=== PATIENT | male | born 1965 | race Caucasian/White ===

== ENCOUNTER 2016-06-07 09:55 | Emergency (ER) | payer BC, MEDICAID ==
[2016-06-07] MEDS ORDERED: ALBUTEROL SULFATE/IPRATROPIUM 3 ML NEBU IH ONE ×2 (12:31→12:44)
--- OUTSIDE RECORDS SUMMARY | 2016-06-07 12:40 | XMS REPORT | Continuity of Care Document ---
:1965 Author Organization [facility] ([facility]) Address [address] [place] [address] Phone [phone] Care Team Providers Name Role Phone Roxann Ramires Primary Care Provider [phone] Source Comments This disclosure is being made pursuant to the Care Everywhere program, applicable federal and state laws, and may not contain all informaitonavailable regarding this patient.[facility] ([facility]) Active Allergies and Adverse Reactions No Known Allergies Current Medications Prescription Sig. Disp. Refills Start Date End Date Status ondansetron 4 mg tablet Take 1 Tab by mouth 30 Tab 3 12/15/2013 Active every 6 hours as needed. Indications: nausea venlafaxine 150 mg XR Take 1 Tab by mouth 30 Tab 3 12/15/2013 Active tablet daily. Indications: MAJOR DEPRESSIVE DISORDER Active Problems Patient Care Coordination Note GOALS OF CARE AND TREATMENT PREFERENCES Diagnosis: Salicylate OD Prognosis: Guarded Goal(s) of Care: Unable to assess. Is the patient an inpatient? Yes. Most important goal of care: NA Additional remarks: Pending conversation with family while patient is encephalopathic Patient able to make own decisions?: No Decision-maker: Contact: Marie: Cheryl Rose [phone] Next of Kin: Son. Not available. 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 Urinary frequency 05/19/2011 Abdominal wall hernia 05/19/2011 Tobacco abuse 05/19/2011 Alcoholism /alcohol abuse 05/19/2011 Resolved Problems Problem Noted Date Resolved Date Suicide attempt by substance overdose 12/11/2013 12/15/2013 Salicylate overdose 12/11/2013 12/15/2013 Metabolic acidosis 12/11/2013 12/14/2013 Respiratory alkalosis 12/11/2013 12/14/2013 Toxic encephalopathy 12/11/2013 12/12/2013 Hypokalemia 12/11/2013 12/15/2013 Alcohol intoxication 12/11/2013 12/12/2013 Leukocytosis, unspecified 12/11/2013 12/14/2013 Social History Tobacco Use Types Packs/Day Years Used Date Current Every Day Smoker Cigarettes 0.5 25 Smokeless Tobacco: Never Used Tobacco Cessation:Ready to Quit: No Comments: Alcohol Use Drinks/Week oz/Week Comments Yes 12 Cans of beer 6.0 Last Filed Vital Signs Vital Sign Reading Time Taken Blood Pressure 126/90 12/15/2013 8:00 AM CDT Pulse 62 12/15/2013 8:00 AM CDT Temperature 35.9 C (96.6 F) 12/15/2013 8:00 AM CDT Respiratory Rate 18 12/15/2013 8:00 AM CDT Height 1.803 m (5' 11") 12/12/2013 1:41 PM CDT Weight 71.1 kg (156 lb 12 oz) 12/13/2013 12:04 PM CDT Body Mass Index 21.87 12/13/2013 12:04 PM CDT Oxygen Saturation 97% 12/15/2013 8:00 AM CDT Plan of Care Health Maintenance Due Date Last Done Comments Hepatitis B Vaccine (1 of 3 1965 - Primary Series) MMR Vaccine 1985 Td Vaccine 1985 Pneumococcal Vaccine (1 of 1 1986 - PPSV23) Influenza Vaccine: Seasonal 11/25/2015 (#1) Lipid Disorder Screening 05/19/2016 05/19/2011 Tdap Vaccine Addressed 05/19/2011 Overridden with the (Previously intention of not completed) completing the topic Results from Last 3 Months Not on file
[2016-06-07 13:41] VITALS: BP 133/73
--- NOTE | 2016-06-07 13:48 | ERNOTE ---
Date of Service: 06/07/16 Time Seen by Provider: 06/07/16 12:27 Stated Complaint: COUGH Presenting Symptoms:: cough Source: patient Exam Limitations: no limitations Immunizations: IMMUNIZATION HX Immunizations Up to Date Yes History of Influenza Vaccine No Hx Pneumococcal Vaccination No Allergies/Adverse Reactions: Allergies No Known Allergies Allergy (Verified 06/07/16 10:57) Home Medications: HOME MEDICATIONS Sertraline HCl [Zoloft] 100 mg PO DAILY 09/17/15 [Last Taken 10/10/15 07:00] Cholecalciferol (Vitamin D3) [Vitamin D3] 2,000 unit PO DAILY 01/28/16 [Last Taken Unknown] Cyanocobalamin (Vitamin B-12) [Vitamin B-12] 500 mcg PO DAILY 01/28/16 [Last Taken Unknown] Folic Acid 0.4 mg PO DAILY 01/28/16 [Last Taken Unknown] Omeprazole [Prilosec] 40 mg PO BID 01/28/16 [Last Taken Unknown] Thiamine HCl [B-1] 100 mg PO DAILY 01/28/16 [Last Taken Unknown] Albuterol Sulfate [Proair Hfa] 2 puff IH Q4H #1 inhaler 06/07/16 [Last Taken Unknown] Levofloxacin [Levaquin] 500 mg PO DAILY #10 tab 06/07/16 [Last Taken Unknown] - History of Present Ilness Narrative: patient relates that he has been coughing for 2 weeks. He relates she has been congested and having mucous at night. The cough is keeping him up. He thinks he has been having a fever. No hemoptysis. CP only with harsh cough. Has not seen anyone else for this. No calf pain or leg swelling. He states some mucous but mostly dry cough. Nothign really makes it better or worse. Timing: constant Frequency/Possible Cause: Denies: frequent episodes Modifying Factors - Improves: Reports: nothing Modifying Factors - Worsens: Reports: nothing Associated Symptoms: Reports: cough, nasal congestion, lightheadedness, other - SOB with cough only. Denies: headache Prior Treatment: Denies: recently seen Review of Systems - Review of Systems Constitutional: Present: chills EYE: Present: no symptoms reported ENT: Absent: sore throat Respiratory: Present: cough Cardiology: Absent: syncope, edema Gastrointestinal/Abdominal: Absent: abdominal pain Neurological: Absent: weakness - Patient's Past Medical History Patient History - Medical: Alcohol Abuse, Anxiety, Depression, Other Patient History - Cardiac/Respiratory: No pertinent hx Patient History - Cancer: No Hx of Cancer Patient History - Surgical Procedures: Other Patient History - Other: None - Family History Mother Family History - Medical: No pertinent hx, Other Family History - Cardiac/Respiratory: No pertinent hx Father Family History - Medical: No pertinent hx Family History - Cardiac/Respiratory: No pertinent hx - Social History Living Situations: home Abuse History: No History of abuse Psych History: Hx of Anxiety, Hx of Depression, Hx of Suicide Attempt Alcohol Use: heavy Drug Use: other - Immunizations Immunizations Up to Date: Yes Hx Pneumococcal Vaccination: No History of Influenza Vaccine: No Physical Exam - Physical Exam General Appearance: Present: alert, no apparent distress, other - Sitting on the edge of the bed watching TV. Speaks in full sentences. No distress. Frequent cough paroxysms. Eye Exam: Normal inspection: bilateral, PERRL: bilateral Ears, Nose, Throat: Present: nasal congestion, normal pharynx. Absent: abnormal TM (R), abnormal TM (L), pharyngeal erythema, pharyngeal swelling, tonsillar exudate, dry mucous membranes Neck: Present: normal inspection Respiratory: Present: no respiratory distress, no accessory muscle use, other - mild chest tenderness. Scattered wheezes throughtout, mild. 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 Absent: motor weakness Skin Exam: Absent: skin rash ED Progress - Vital Signs Patient's Vital Signs:: I have reviewed the patient's vital signs. Vital Signs: Vital Signs 06/07/16 06/07/16 06/07/16 10:48 13:02 13:05 Temperature 36.6 C Pulse Rate 66 70 71 Respiratory 12 24 H 24 H Rate Blood Pressure 152/85 130/82 O2 Sat by Pulse 100 97 97 Oximetry - Progress/Reassessment Chief Complaint: Upper Respiratory Symptoms Progress Note-Subjective: 06/07/16 13:57 patient had near complete resolution of wheezing with neb. No distress or hypoxia. I offered him labs and x-ray chest, he declines this and would like treated. Clinically this is bronchitis with no suggestion of PE, CS, CHF or other life threat. He understands risks and relates he will come back to get the testing if he is worse. i discussed warning signs and reasons to return as well as the need for close f/u. Departure - Departure Clinical Impression: Bronchitis Disposition: Home self-care Condition: Stable Instructions: Acute Bronchitis, Sign-rv-Lafc Additional Instructions: Rest. Fluids. Medications as directed. Follow-up with your doctor within 3 days for a re-check. Return here if you change your mind about having the testing that we discussed, if you develop fever, trouble breathing or if your condition worsens or changes in any way. Referrals: Facundo Martinez MD [Primary Care Provider] - Prescriptions: Albuterol Sulfate [Proair Hfa] 2 puff IH Q4H #1 inhaler Levofloxacin [Levaquin] 500 mg PO DAILY #10 tab
== END 2016-06-07 13:46 | disposition home or self-care (01) ==
LOC: ER 09:55
DX: J40 Bronchitis, not specified as acute or chronic (principal); F41.9 Anxiety disorder, unspecified; F32.9 Major depressive disorder, single episode, unspecified

== ENCOUNTER 2017-01-05 11:06 | Day surgery (SDC) | payer MEDICAID ==
[~2017-01-05 11:06] MED LIST: RINGER'S SOLUTION,LACTATED 1,000 ML IV PRN
[2017-01-05] MEDS: RINGER'S SOLUTION,LACTATED 1,000 ML IV ONE (12:20)
[2017-01-05] MEDS: ceFAZolin SODIUM 1 GM VIAL IV ONE (12:25)
[2017-01-05] MEDS: BUPIVACAINE HCL/EPINEPHRINE 50 ML VIAL IJ ONE (12:40)
--- NOTE | 2017-01-05 13:23 | OR ---
Operative Report - Dictated Report Narrative: Date: 01/05/2017 Preop diagnosis: Incarcerated epigastric hernia Postop diagnosis: same Procedure: Primary repair of incarcerated epigastric hernia Staff surgeon: Carmine Will MD Anesthesia: local/MAC EBL: minimal Specimen: Herniated fat contents-discarded Complications: none apparent Indications: Painful incarcerated epigastric hernia Description: Pt was placed in the supine position and the abdomen was prepped and draped in a sterile fashion. A field block was performed in the midline. Supraumbilical midline incision was carried out. Dissection was taken down to the hernia sac. This was a true hernia sac and also herniated properitoneal fat. All of the fat and hernia sac was transected with electrocautery flush with the fascia. The defect was 1 cm in size. This defect was closed with figure-of-8 0-Vicryl suture. The incision was closed with interrupted subcuticular 4-0 Vicryl and sealed with dermabond. The patient tolerated the procedure well without apparent complications and was discharged from the operating room in stable condition.
[2017-01-05 14:59] VITALS: BP 116/72
== END 2017-01-05 11:07 | disposition home or self-care (01) ==
LOC: AMB 11:06
PROVIDERS: ATTEND Specialist
PROC: 0WQF0ZZ Repair Abdominal Wall, Open Approach (ICD-10-PCS; principal; 2017-01-05 12:45)
DX: K43.6 Other and unspecified ventral hernia with obstruction, without gangrene (principal); K21.9 Gastro-esophageal reflux disease without esophagitis; J44.9 Chronic obstructive pulmonary disease, unspecified; F41.8 Other specified anxiety disorders; F17.210 Nicotine dependence, cigarettes, uncomplicated; Z68.23 Body mass index [BMI] 23.0-23.9, adult

== ENCOUNTER 2017-01-19 09:52 | Emergency (ER) | payer MEDICAID ==
[2017-01-19] MEDS ORDERED: HYDROcodone/ACETAMINOPHEN 1 EACH TABLET PO ONE (10:51)
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
[2017-01-19] MEDS ORDERED: HYDROcodone/ACETAMINOPHEN 1 EACH TABLET ONE (10:59)
[2017-01-19 11:59] VITALS: BP 136/94
== END 2017-01-19 12:05 | disposition home or self-care (01) ==
LOC: ER 09:52
DX: M54.6 Pain in thoracic spine (principal); F17.210 Nicotine dependence, cigarettes, uncomplicated; K21.9 Gastro-esophageal reflux disease without esophagitis; F41.9 Anxiety disorder, unspecified; F32.9 Major depressive disorder, single episode, unspecified

== ENCOUNTER 2017-02-09 08:29 | Emergency (ER) | payer MEDICAID ==
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
[2017-02-09] MEDS ORDERED: ACETAMINOPHEN 500 MG TABLET PO ONE (09:56)
[2017-02-09 10:06] VITALS: BP 134/80
== END 2017-02-09 10:07 | disposition home or self-care (01) ==
LOC: ER 08:29
DX: S30.0XXA Contusion of lower back and pelvis, initial encounter (principal); F17.200 Nicotine dependence, unspecified, uncomplicated; F32.9 Major depressive disorder, single episode, unspecified; F41.9 Anxiety disorder, unspecified; K21.9 Gastro-esophageal reflux disease without esophagitis; V19.9XXA Pedal cyclist (driver) (passenger) injured in unspecified traffic accident, initial encounter

== ENCOUNTER 2017-05-31 18:04 | Observation (INO) | payer MEDICAID ==
[2017-05-31] MEDS ORDERED: ASPIRIN 325 MG TABLET.DR PO ONE (18:14)
[2017-05-31] MEDS ORDERED: NITROGLYCERIN 0.4 MG/TAB BTL SL ONE ×3 (18:14→21:55)
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
[2017-05-31 18:22] LABS: Hematocrit 38.9 % (42.0-52.0); Hemoglobin 14.3 gm/dL (13.5-18.0); Mean Cell Volume 89.2 fl (78-100); Mean Corpuscular Hemoglobin 32.8 pg (27-31); Mean Corpuscular Hgb Conc 36.8 g/dl (32-36); Mean Platelet Volume 8.8 fl (6.0-9.5); Neutrophil # 4.1 K/mm3 (1.3-6.0); Neutrophil % 59.3 % (42-75.0); Platelet Count 237 K/mm3 (150-450); Red Blood Count 4.36 M/mm3 (4.7-6.0); Red Cell Distribution Width 12.4 % (11.5-14.0); White Blood Count 6.9 K/mm3 (4.0-10.5)
[2017-05-31 18:39] LABS: Prothrombin Time (Patient) 10.5 Seconds (9.0-11.0)
[2017-05-31 18:40] LABS: INR 1.05 INR (0.90-1.10); Partial Thrombolplastin Time 26.6 Seconds (24-32)
[2017-05-31 18:45] LABS: ALT 44 U/L (19-67); AST 21 U/L (0-48); Albumin * 3.6 gm/dl (3.4-5.0); Alkaline Phosphatase * 57 U/L (50-170); Anion Gap 9.8 mmol/L (6.8-13.8); BUN/Creatinine Ratio 22.4 (9.0-21.6); Bilirubin, Total 0.2 mg/dL (0.0-1.1); Blood Urea Nitrogen 17 mg/dL (6-23); Ca. Corrected For Albumin 8.7 mg/dL (8.4-10.2); Calcium * 8.7 mg/dL (7.9-10.9); Carbon Dioxide 26.3 mmol/L (24-32.6); Chloride 102 mmol/L (97-106); Glucose * 112 mg/dL (70-110); Lipase 200 U/L (73-393); Potassium 3.1 mmol/L (3.4-4.6); Sodium 135 mmol/L (132-142); Total Protein 6.7 gm/dL (6.2-8.2); Troponin I Less than 0.017 ng/ml (0.00-0.10)
[2017-05-31 18:48] LABS: Urine Bilirubin Negative (NEGATIVE); Urine Blood Negative /ul (NEGATIVE); Urine Ketone Negative (NEGATIVE); Urine Nitrite Negative (NEGATIVE); Urine Protein Negative (NEGATIVE); Urine Urobilinogen Normal (NORMAL); Urine pH 7.5 pH (5.0-7.0)
[2017-05-31 18:58] LABS: Urine Appearance Clear; Urine Bacteria TRACE; Urine Color Yellow; Urine RBC None Seen /hpf (0-5); Urine WBC None Seen /hpf (0-5)
[2017-05-31 19:09] LABS: Cocaine Ur Negative (NEGATIVE); Urine Barbiturate Negative (NEGATIVE); Urine Benzodiazepines Negative (NEGATIVE); Urine Opiates Negative (NEGATIVE); Urine PCP Negative (NEGATIVE); Urine THC Negative (NEGATIVE)
[2017-05-31] MEDS ORDERED: PANTOPRAZOLE SODIUM 40 MG in NORMAL SALINE 100 ML IV SCH (23:45)
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
[2017-06-01] MEDS ORDERED: POTASSIUM CHLORIDE 20 MEQ TABLET.SA PO ONE ×2 (00:04→09:51)
[2017-06-01] MEDS ORDERED: POTASSIUM CHLORIDE 20 MEQ TABLET.SA ONE (01:12)
[2017-06-01] MEDS: ASPIRIN 81 MG TABLET.DR PO SCH ×2 (01:14→08:16)
[2017-06-01 05:33] LABS: Chol/HDL Risk Ratio 2.1 mg/dL (3.3-5.0)
[2017-06-01] MEDS ORDERED: ALBUTEROL SULFATE 2.5 MG/0.5 ML VIAL.NEB IH SCH (07:00)
[2017-06-01] MEDS ORDERED: MELOXICAM 15 MG TABLET PO SCH (09:00)
[2017-06-01] MEDS ORDERED: SERTRALINE HCL 100 MG TABLET PO SCH (09:00)
[2017-06-01 10:20] VITALS: BP 120/75
--- NOTE | 2017-06-01 11:20 | DS ---
(1) Chest pain Problem: Acute Qualifiers: Chest pain type: unspecified Qualified Code(s): R07.9 - Chest pain, unspecified (2) GERD (gastroesophageal reflux disease) Problem: Chronic (3) Substance abuse Diagnosis(s): EtOH and Nicotine. Problem: Chronic (4) Nztkkge-Fmvci-Awfvi disease Problem: Chronic (5) SHYAM on CPAP Problem: Chronic Description of Stay: DATE OF ADMISSION: 05/31/17. DATE OF DISCHARGE 06/01/17. DIAGNOSTICS: CTA 05/31/17. DISCHARGE SUMMARY: Johan Luna is a 52-year-old WM with a H/O [place] tooth disease, GERD , SHYAM on CPAP, nicotine/EtOH abuse, anxiety/depression, who was admitted through the ER due to chest pain occurring at rest[while watching TV], rated as 8-9/10, with radiation to shoulders, associated with dizziness, diaphoresis, SOB. Patient came to the ER for evaluation; CP was relieved by SL NTG 1. Had recurrence of pain which was again relieved by NTG 1. Patient had no chest wall tenderness/epigastric tenderness/ H/O trauma. Underwent a CTA due to pleuritic chest pain. CT/CTA chest: Exam performed per PE protocol, there is suboptimal evaluation of the aorta. There are atherosclerotic calcifications. There are no intraluminal filling defects to suggest thrombosis/PE. There is no pericardial effusion there is some dependent atelectasis. There are no pleural effusions. There is nodularity to both adrenal glands compatible with adrenal adenomas. IMPRESSION: No PE. UDS was normal, influenza titers and UA were WNL. Serial troponins were negative. EKG on admission showed sinus bradycardia rate 57/m w/o acute changes. Repeat EKG on 06/01/17 was nonacute. Potassium was 3.1 on admission and he was given a total of 60 mEq of Kdur. Patient was advised to decrease the amount of EtOH daily and quit smoking if possible. Patient was discharged in a stable condition and to a have a pharmacological stress test as outpatient. [Greater than 30 minutes was spent with the patient discussing plan of care; including discharge plans, reconciliation of medications, preparing and dictating discharge summary.] Procedures Performed: none Results and Findings: Laboratory Tests 05/31/17 18:20 WBC 6.9 Hgb 14.3 Hct 38.9 L Plt Count 237 05/31/17 18:15 Plasma Sodium 135 Potassium 3.1 L D Chloride 102 Carbon Dioxide 26.3 BUN 17 D Creatinine 0.76 Est GFR (Non-Af Amer) 115 D Random Glucose 112 H Calcium Adj for Albumin 8.7 Total Bilirubin 0.2 AST 21 ALT 44 Alkaline Phosphatase 57 Total Protein 6.7 Albumin 3.6 05/31/17 05/31/17 06/01/17 18:15 22:12 04:00 Troponin I Less than 0.017 Less than 0.017 Less than 0.017 06/01/17 04:00 Triglycerides 52 Cholesterol 154 LDL Cholesterol 73 HDL Cholesterol 71 H Discharge Disposition: Home self care Disposition: Home self-care Condition: Fair Discharge Activity: Activity as tolerated Discharge Diet: Low fat/chol, High Fiber Referrals: Facundo Martinez MD [Primary Care Provider] - Additional Patient Instructions (free text): Please give information to the patient on GERD precautions and nicotine cessation. Decrease the amount of EtOH intake. Quit smoking if possible. Appointment with Dr. Ho after pharmocological stress test is done. Complete Home Medications List: Complete Home Medication List: Sertraline HCl [Zoloft] 100 mg PO DAILY 09/17/15 Albuterol Sulfate [Proair Hfa] 2 puff IH QID 12/25/16 Meloxicam [Mobic] 15 mg PO DAILY 12/25/16 Omeprazole 40 mg PO HS 12/25/16 Primidone [Mysoline] 2.5 tab PO HS 12/25/16 tiZANidine HCL [Zanaflex] 4 mg PO HS 12/25/16 Loratadine 10 mg PO HS 06/01/17 Amb Orders for Discharge: Nuc Pharmacological Stress Time Frame: 1 Week, Location: Determined By Patient
[2017-06-01] MEDS ORDERED: LORATADINE 10 MG TABLET PO SCH (21:00)
[2017-06-01] MEDS ORDERED: PRIMIDONE 250 MG TABLET PO SCH (21:00)
[2017-06-01] MEDS ORDERED: PANTOPRAZOLE SODIUM 40 MG TABLET.EC PO SCH (21:00)
[2017-06-01] MEDS ORDERED: tiZANidine HCL 4 MG TABLET PO SCH (21:00)
== END 2017-06-01 14:00 | disposition home or self-care (01) ==
LOC: ER 18:04 → MS 23:10
PROVIDERS: ADMIT Nurse Practitioner; ATTEND Internal Medicine
DX: R42 Dizziness and giddiness (principal); R07.9 Chest pain, unspecified; K21.9 Gastro-esophageal reflux disease without esophagitis; F10.10 Alcohol abuse, uncomplicated; Z72.0 Tobacco use; G60.0 Hereditary motor and sensory neuropathy; G47.33 Obstructive sleep apnea (adult) (pediatric); F41.8 Other specified anxiety disorders
CPT/HCPCS: 36415; 71046; 71275; 80053; 80061; 80307; 81001; 83690; 84484; 85025; 85379; 85610; 85730; 87400; 93005; 94640; 96365; 99285; G0378